=== PATIENT | female | born 1950 | race Caucasian/White ===

== ENCOUNTER 2020-12-27 00:17 | Emergency (ER) | payer MEDICARE, BC ==
[2020-12-27] MEDS ORDERED: CEFUROXIME500 MG PO (03:57)
[2020-12-27] MEDS ORDERED: DULCOLAX5 MG PO (03:57)
[2020-12-27] MEDS ORDERED: PYRIDIUM200 MG PO (03:57)
== END 2020-12-27 04:13 | disposition home or self-care (01) ==
LOC: ER1 00:17
DX: N30.00 Acute cystitis without hematuria (principal); K59.00 Constipation, unspecified; E11.9 Type 2 diabetes mellitus without complications; I10 Essential (primary) hypertension; Z88.6 Allergy status to analgesic agent; J45.909 Unspecified asthma, uncomplicated; Z88.2 Allergy status to sulfonamides; Z90.710 Acquired absence of both cervix and uterus
CPT/HCPCS: 81001; 87077; 87086; 87186; 99283